=== PATIENT | female | born 1945 | race Caucasian/White ===

== ENCOUNTER 2025-02-02 14:22 | Inpatient (IN) | payer OTHER ==
[~2025-02-02] VITALS: Ht 160 cm; Wt 50.3 kg
[2025-02-02 14:57] LABS: PLATELET COUNT (AUTO) 376 K/uL (150-450); RED BLOOD CELL COUNT(AUTO) 3.11 MIL/uL (4.0-5.2); RED CELL DISTRIBUTION WIDTH 16.7 % (11.5-15.0); WHITE BLOOD COUNT (AUTO) 10.0 K/uL (4.3-11.0)
[2025-02-02 15:10] LABS: CALCIUM, SERUM 8.7 mg/dL (8.5-10.1); CREATININE 1.2 mg/dL (0.6-1.3); SODIUM SERUM 143 mmol/L (136-145); UREA NITROGEN, BLOOD 37 mg/dL (7-18)
[2025-02-02 15:21] LABS: INR 0.98 (0.91-1.10)
[2025-02-02] MEDS: IV NS 0.9% 250 ML BAG IV ONE ×2 (15:30→17:20)
[2025-02-02 15:58] LABS: APPEARANCE,URINE SLIGHTLY CLOUDY (CLEAR); BLOOD, URINE TRACE-INTA Ery/uL (NEGATIVE); LEUKOCYTE ESTERASE ,URINE 3+ (NEGATIVE); NITRITE, URINE POSITIVE (NEGATIVE); UGLUCOSE NEGATIVE (NEGATIVE)
[2025-02-02 16:11] LABS: ADD URINE CULTURE YES; SQUAMOUS EPITHELIAL CELL,UR Moderate /HPF (None Seen)
[2025-02-02] MEDS ORDERED: CEFTRIAXONE 1GM BAG (ER ONLY) 50 ML IV ONE ×2 (16:30→16:34)
[2025-02-02] MEDS ORDERED: POLY17PO4 GT (17:31)
[2025-02-02] MEDS ORDERED: HEPA500014 SQ (17:31)
[2025-02-02] MEDS ORDERED: ASPI-1169 GT (17:31)
[2025-02-02] MEDS ORDERED: LEVO50TA GT (17:31)
[2025-02-02] MEDS ORDERED: BISA10SU61 RC (17:31)
[2025-02-02] MEDS ORDERED: INSU100V39 SQ (17:31)
[2025-02-02] MEDS ORDERED: DILT30TA2 GT (17:31)
[2025-02-02] MEDS ORDERED: METO25TA6 GT ×2 (17:31)
[2025-02-02] MEDS ORDERED: FURO-145 GT (17:31)
[2025-02-02] MEDS ORDERED: POTA20PA41 GT (17:31)
[2025-02-02] MEDS ORDERED: MULT-213 GT (17:31)
[2025-02-02] MEDS ORDERED: ATOR40TA GT (17:31)
[2025-02-02] MEDS ORDERED: VALP250S3 GT (17:31)
[2025-02-02] MEDS ORDERED: SENN-18 GT (17:31)
[2025-02-02] MEDS: PIPERACILLIN /TAZOBACTAM 3.375 G in IV D5W 50 ML IV ONE (18:00)
[2025-02-02] MEDS: VANCOMYCIN 1 GM in IV D5W 250 ML IV ONE (18:15)
[2025-02-02 18:39] VITALS: BP 106/72; TEMP 97.3; O2SAT 95
[2025-02-02] MEDS ORDERED: SENNOSIDES 8.6 MG TABLET GT PRN (19:30)
[2025-02-02] MEDS ORDERED: DEXTROSE 50%-WATER 50 ML DISP.SYRIN IV PRN (19:30)
[2025-02-02] MEDS ORDERED: ONDANSETRON HCL/PF 4 MG/2 ML VIAL IVP PRN (19:30)
[2025-02-02] MEDS ORDERED: DOSING PER PHARMACY-CEFEPIME IVPB XX PRN (19:30)
[2025-02-02] MEDS ORDERED: Z GUARD REMEDY 4 OZ OINT TP PRN (19:30)
[2025-02-02] MEDS ORDERED: ACETAMINOPHEN 325 MG TABLET PO PRN (19:30)
[2025-02-02 20:00] VITALS: BP 125/57; TEMP 98; O2SAT 96
[2025-02-02] MEDS: CEFEPIME 2 GM in IV D5W 100 ML IV SCH (20:55)
[2025-02-02] MEDS: DILTIAZEM HCL 30 MG TABLET GT SCH (21:06)
[2025-02-02] MEDS: ATORVASTATIN 40 MG TABLET GT SCH (21:06)
[2025-02-02] MEDS: BLOOD SUGAR DIAGNOSTIC 1 EACH STRIP IN SCH (22:29)
[2025-02-02] MEDS: INSULIN REGULAR, HUMAN 100 UNIT/ML 3 ML VIAL SQ PRN (22:30)
[2025-02-03] VITALS: BP 118/62; TEMP 97.6; O2SAT 95
[2025-02-03 04:00] VITALS: BP 106/59; TEMP 97.8; O2SAT 95
[2025-02-03 07:32] LABS: PLATELET COUNT (AUTO) 376 K/uL (150-450); RED BLOOD CELL COUNT(AUTO) 3.11 MIL/uL (4.0-5.2); RED CELL DISTRIBUTION WIDTH 16.4 % (11.5-15.0); WHITE BLOOD COUNT (AUTO) 9.1 K/uL (4.3-11.0)
[2025-02-03 07:52] LABS: CALCIUM, SERUM 8.8 mg/dL (8.5-10.1); CREATININE 0.9 mg/dL (0.6-1.3); PHOSPHORUS 3.3 mg/dL (2.5-4.9); SODIUM SERUM 144.0 mmol/L (136-145); UREA NITROGEN, BLOOD 23.0 mg/dL (7-18)
[2025-02-03] MEDS: ASPIRIN 81 MG TAB.CHEW GT SCH (08:24)
[2025-02-03] MEDS: METOPROLOL TARTRATE 25 MG TABLET GT SCH (08:24)
[2025-02-03] MEDS: PANTOPRAZOLE 40 MG TABLET.DR PO SCH (08:24)
[2025-02-03] MEDS: LEVOTHYROXINE SODIUM 50 MCG TABLET GT SCH (08:24)
[2025-02-03] MEDS: MULTIVIT W/MINERALS 1 TAB TABLET GT SCH (08:24)
[2025-02-03] MEDS: VALPROIC ACID 250 MG/5 ML UDC GT SCH (08:25)
[2025-02-03] MEDS: QUETIAPINE FUMARATE 25 MG TABLET PO PRN (13:33)
[2025-02-03] MEDS: GLUCERNA 1.2 1,000 ML BOTTLE GT PRN (17:40)
[2025-02-03 20:00] VITALS: BP 121/81; TEMP 97.8; O2SAT 97
[2025-02-04] VITALS (12 sets, daily range): BP systolic 110–130; BP diastolic 54–85; TEMP 97.6–98.9; O2SAT 93–100
[2025-02-04 06:53] LABS: PLATELET COUNT (AUTO) 393 K/uL (150-450); RED BLOOD CELL COUNT(AUTO) 3.20 MIL/uL (4.0-5.2); RED CELL DISTRIBUTION WIDTH 17.4 % (11.5-15.0); WHITE BLOOD COUNT (AUTO) 8.7 K/uL (4.3-11.0)
[2025-02-04 07:04] LABS: CALCIUM, SERUM 8.8 mg/dL (8.5-10.1); CREATININE 0.9 mg/dL (0.6-1.3); PHOSPHORUS 3.6 mg/dL (2.5-4.9); SODIUM SERUM 143.0 mmol/L (136-145); UREA NITROGEN, BLOOD 23.0 mg/dL (7-18)
[2025-02-04] MEDS: ACETYLCYSTEINE 10% SOLN 400 MG/4 ML VIAL NEB SCH (15:07)
[2025-02-04] MEDS: ALBUTEROL HALF STRENGTH 1.25 MG/3 ML VIAL.NEB NEB SCH (15:07)
[2025-02-04] MEDS: IPRATROPIUM NEB FS 0.5 MG/2.5 ML AMPUL.NEB NEB SCH (15:07)
[2025-02-04] MEDS: VALPROIC ACID 250 MG/5 ML UDC GT SCH (17:38)
[2025-02-05] VITALS (17 sets, daily range): BP systolic 90–120; BP diastolic 52–69; TEMP 98–98.3; O2SAT 92–99
[2025-02-05] MEDS: CEFEPIME 2 GM in IV D5W 100 ML IV SCH (11:52)
[2025-02-06] VITALS (13 sets, daily range): BP systolic 91–103; BP diastolic 40–66; TEMP 97.2–98.6; O2SAT 92–100
[2025-02-06] MEDS: QUETIAPINE FUMARATE 25 MG TABLET GT PRN (00:11)
[2025-02-06 07:34] LABS: PLATELET COUNT (AUTO) 339 K/uL (150-450); RED BLOOD CELL COUNT(AUTO) 2.81 MIL/uL (4.0-5.2); RED CELL DISTRIBUTION WIDTH 17.8 % (11.5-15.0); WHITE BLOOD COUNT (AUTO) 7.4 K/uL (4.3-11.0)
[2025-02-06 08:17] LABS: CALCIUM, SERUM 8.7 mg/dL (8.5-10.1); CREATININE 1.0 mg/dL (0.6-1.3); PHOSPHORUS 4.5 mg/dL (2.5-4.9); SODIUM SERUM 133.0 mmol/L (136-145); UREA NITROGEN, BLOOD 26.0 mg/dL (7-18)
[2025-02-06] MEDS: IV NS 0.9% 250 ML IV ONE (10:51)
[2025-02-06 11:35] LABS: ABG BASE EXCESS -1.5 mmol/L (-2.0-3.0); ABG OXYGEN SATURATION 98.4 % (94.0-98.0); ABG PCO2 32.9 mmHg (32.0-45.0); ABG PH 7.446 (7.350-7.450); ABG PO2 132.6 mmHg (83.0-108.0); ABG TOTAL HEMOGLOBIN 8.7 G/dL (12.0-16.0); FRACTIONATED INSPIRED OXYGEN 44.0 %; SITE, ABG RIGHT RADIAL
[2025-02-07] VITALS (14 sets, daily range): BP systolic 113–149; BP diastolic 60–87; TEMP 97.1–98.1; O2SAT 94–100
[2025-02-07 08:32] LABS: PLATELET COUNT (AUTO) 397 K/uL (150-450); RED BLOOD CELL COUNT(AUTO) 3.10 MIL/uL (4.0-5.2); RED CELL DISTRIBUTION WIDTH 17.2 % (11.5-15.0); WHITE BLOOD COUNT (AUTO) 7.6 K/uL (4.3-11.0)
[2025-02-07 08:58] LABS: CALCIUM, SERUM 9.1 mg/dL (8.5-10.1); CREATININE 0.8 mg/dL (0.6-1.3); PHOSPHORUS 3.2 mg/dL (2.5-4.9); SODIUM SERUM 141.0 mmol/L (136-145); UREA NITROGEN, BLOOD 23.0 mg/dL (7-18)
[2025-02-07] MEDS ORDERED: LEVO750T46 PO (11:18)
[2025-02-07] MEDS ORDERED: VALP250S4 GT (11:21)
[2025-02-08] VITALS (13 sets, daily range): BP systolic 102–146; BP diastolic 52–86; TEMP 97.3–99; O2SAT 92–100
[2025-02-09] VITALS (10 sets, daily range): BP systolic 113–121; BP diastolic 55–58; TEMP 97.9–98.4; O2SAT 92–98
[2025-02-10 05:13] LABS: FOLIC ACID 18.0 ng/mL (>3.0)
== END 2025-02-09 20:08 | DRG 871 ==
LOC: ER 14:31 → TELE1 18:26 → MEDSG1 02-08 10:30
PROVIDERS: ADMIT Nurse Practitioner Family; ATTEND Nurse Practitioner Family
DX: A41.9 Sepsis, unspecified organism (principal); G93.41 Metabolic encephalopathy; J15.9 Unspecified bacterial pneumonia; S09.90XA Unspecified injury of head, initial encounter; F03.911 Unspecified dementia, unspecified severity, with agitation; I50.9 Heart failure, unspecified; I11.0 Hypertensive heart disease with heart failure; R13.10 Dysphagia, unspecified; N39.0 Urinary tract infection, site not specified; B96.89 Other specified bacterial agents as the cause of diseases classified elsewhere; F09 Unspecified mental disorder due to known physiological condition; F39 Unspecified mood [affective] disorder; E03.9 Hypothyroidism, unspecified; E11.9 Type 2 diabetes mellitus without complications; F03.918 Unspecified dementia, unspecified severity, with other behavioral disturbance; F03.93 Unspecified dementia, unspecified severity, with mood disturbance; F03.94 Unspecified dementia, unspecified severity, with anxiety; J98.11 Atelectasis; F03.90 Unspecified dementia, unspecified severity, without behavioral disturbance, psychotic disturbance, mood disturbance, and anxiety; F41.9 Anxiety disorder, unspecified; W06.XXXA Fall from bed, initial encounter; Y92.9 Unspecified place or not applicable; E78.5 Hyperlipidemia, unspecified; Z86.73 Personal history of transient ischemic attack (TIA), and cerebral infarction without residual deficits; Z93.1 Gastrostomy status; Z79.890 Hormone replacement therapy; Z79.4 Long term (current) use of insulin; Z79.01 Long term (current) use of anticoagulants; Z79.82 Long term (current) use of aspirin; Z79.899 Other long term (current) drug therapy; R45.1 Restlessness and agitation; M84.48XD Pathological fracture, other site, subsequent encounter for fracture with routine healing; Z78.1 Physical restraint status; Y95 Nosocomial condition; M47.812 Spondylosis without myelopathy or radiculopathy, cervical region; Z86.79 Personal history of other diseases of the circulatory system; Z98.890 Other specified postprocedural states
CPT/HCPCS: 36415; 36600; 70450-TC; 71045-TC; 71250-TC; 72125-TC; 72170-TC; 80048-TC; 81001; 82607-TC; 82803-TC; 82962-TC; 83605-TC; 83735-TC; 83880; 83921; 84100-TC; 84425; 84443-TC; 84484-TC; 85025-TC; 85730-TC; 87040-TC; 87081-TC; 87086-TC; 87186-TC; 94761-TC; 94762-TC; 94799-TC; 97110-TC; 97112-TC; 97530-TC; 97535-TC; A4223; G0378; J0692; J0696; J1815; J2543; J3373; J7040; J7050; J7060